=== PATIENT | female | born 1960 | race African-American/Black ===

== ENCOUNTER 2016-12-05 16:59 | Emergency (ER) | payer MEDICAID, MEDICARE ==
[~2016-12-05] VITALS: Ht 180.3 cm; Wt 73.0 kg
[2016-12-05 17:08] VITALS: BP 116/82
== END 2016-12-06 01:00 | disposition left against medical advice (07) ==
LOC: ER 12-06 00:40
DX: Z53.21 Procedure and treatment not carried out due to patient leaving prior to being seen by health care provider (principal)